=== PATIENT | male | born 1980 | race Two or more races ===

== ENCOUNTER 2017-03-03 12:52 | Observation (INO) | payer BC, OTHER ==
[~2017-03-03] VITALS: Ht 373.4 cm; Wt 108.9 kg
[2017-03-03 13:41] LABS: Basophils # (auto) 0 uL; Basophils % (auto) 0.7 % (0.0-2.0); Eosinophils # (auto) 0.3 uL; Eosinophils % (auto) 5.8 % (0.0-7.0); Hematocrit 47.8 % (41.0-53.0); Hemoglobin 16.8 g/dL (13.5-17.5); Lymphocytes # (auto) 1.5 uL; Lymphocytes % (auto) 27.5 % (10.0-50.0); Mean Corpuscular Hemoglobin 32.3 pg (28.0-32.0); Mean Corpuscular Hgb Conc. 35.2 g/dL (32.0-36.0); Mean Corpuscular Volume 91.6 fL (80.0-100.0); Monocytes # (auto) 0.4 uL; Monocytes % (auto) 7.6 % (0.0-12.0); Neutrophils # (auto) 3.1 uL; Neutrophils % (auto) 58.4 % (37.0-80.0); Nucleated Red Blood Cells % 0.1 %; Platelet Count (auto) 183 10^3/uL (140-450); Red Blood Cells 5.22 10^6/uL (4.5-5.90); White Blood Cell 5.4 10^3/uL (4.4-10.8)
[2017-03-03 13:47] LABS: Urine Bacteria NONE SEEN /hpf (None Seen); Urine Blood 3+ /uL (Negative); Urine Mucus FEW (None Seen); Urine Specific Gravity 1.022 (1.001-1.035); Urine WBC 10 /hpf (0 - 3)
[2017-03-03 13:58] LABS: Albumin 4.3 g/dL (3.4-5.0); BUN/Creatinine Ratio 14.7; Bilirubin, Total 1.3 mg/dL (0.2-1.0); Calcium 9.3 mg/dL (8.5-10.1); Potassium 4.1 mmol/L (3.5-5.1); Total Protein 8.5 g/dL (6.4-8.2)
[2017-03-03] MEDS ORDERED: ACETAMINOPHEN 325 MG TAB PO ONE (21:45)
[2017-03-04 00:23] LABS: INR 1.05 (0.9-1.15); Partial Thromboplastin Time 28.1 sec (22.64-33.71); Prothrombin Time 11.4 sec (9.37-12.3)
[2017-03-04 03:00] VITALS: BP 134/73
== END 2017-03-04 03:36 | disposition home or self-care (01) | DRG 392 ==
LOC: ER 12:58 → OVERFLOW 20:50 → ER 03-04 03:36
PROVIDERS: ADMIT Family Medicine; ATTEND Family Medicine
DX: R10.30 Lower abdominal pain, unspecified (principal); K76.0 Fatty (change of) liver, not elsewhere classified; Z82.49 Family history of ischemic heart disease and other diseases of the circulatory system
CPT/HCPCS: 36415; 74176; 80053; 81001; 83735; 85025; 85610; 85730; 94761; 99285; G0378

== ENCOUNTER 2017-03-15 09:20 | Emergency (ER) | payer BC ==
[~2017-03-15] VITALS: Ht 170.2 cm; Wt 110.4 kg
[2017-03-15 09:34] VITALS: BP 152/97
[2017-03-15] MEDS ORDERED: KETOROLAC TROMETH 60MG/2ML VIAL IM ONE (10:15)
[2017-03-15 10:28] LABS: Urine Bacteria NONE SEEN /hpf (None Seen); Urine Blood 2+ /uL (Negative); Urine Mucus FEW (None Seen); Urine Specific Gravity 1.023 (1.001-1.035); Urine WBC 1 /hpf (0 - 3)
[2017-03-15 11:43] LABS: Basophils # (auto) 0 uL; Basophils % (auto) 0.5 % (0.0-2.0); Eosinophils # (auto) 0.2 uL; Eosinophils % (auto) 2.9 % (0.0-7.0); Hematocrit 46.5 % (41.0-53.0); Hemoglobin 16.2 g/dL (13.5-17.5); Lymphocytes # (auto) 0.7 uL; Lymphocytes % (auto) 12.4 % (10.0-50.0); Mean Corpuscular Hemoglobin 31.7 pg (28.0-32.0); Mean Corpuscular Hgb Conc. 34.8 g/dL (32.0-36.0); Mean Corpuscular Volume 90.8 fL (80.0-100.0); Monocytes # (auto) 0.4 uL; Monocytes % (auto) 6.3 % (0.0-12.0); Neutrophils # (auto) 4.6 uL; Neutrophils % (auto) 77.9 % (37.0-80.0); Nucleated Red Blood Cells % 0.1 %; Platelet Count (auto) 153 10^3/uL (140-450); Red Blood Cells 5.11 10^6/uL (4.5-5.90); Red Cell Distribution Width 12.9 % (11.8-14.3); White Blood Cell 5.9 10^3/uL (4.4-10.8)
[2017-03-15 12:01] LABS: Albumin 4.1 g/dL (3.4-5.0); BUN/Creatinine Ratio 12.8; Bilirubin, Total 0.8 mg/dL (0.2-1.0); Potassium 4.3 mmol/L (3.5-5.1); Total Protein 7.9 g/dL (6.4-8.2)
== END 2017-03-15 11:39 | disposition home or self-care (01) ==
LOC: ER 09:20
DX: N20.0 Calculus of kidney (principal)
CPT/HCPCS: 36415; 74176; 80053; 81001; 81002; 85025; 96372; 99285; J1885